=== PATIENT | male | born 1950 | race Caucasian/White ===

== ENCOUNTER 2017-12-10 14:14 | Emergency (ER) | payer OTHER ==
[~2017-12-10] VITALS: Ht 180.3 cm; Wt 75.8 kg
[2017-12-10 15:25] VITALS: BP 138/80
[2017-12-10 15:46] LABS: CULTURE INDICATED? YES; MICROSCOPIC INDICATED
== END 2017-12-10 16:17 | disposition home or self-care (01) ==
LOC: ED 16:11
DX: N45.1 Epididymitis (principal); N43.3 Hydrocele, unspecified
CPT/HCPCS: 76870; 81001; 87077; 87086; 87186; 99285